=== PATIENT | female | born 1975 | race Caucasian/White ===

== ENCOUNTER 2017-11-27 11:14 | Inpatient (IN) | payer OTHER ==
[2017-11-27] MEDS: SOD CHLORIDE 0.9% 1,000 ML IV ×2 (12:51→22:17)
[2017-11-27] MEDS ORDERED: MAGNESIUM HYDROXIDE 30ML CUP PO (13:00)
[2017-11-27] MEDS ORDERED: NACL 0.9% 3 ML SYG IV (13:00)
[2017-11-27] MEDS ORDERED: morphine 2 MG INJ IV (13:00)
[2017-11-27] MEDS ORDERED: HYDROCODONE/APAP (5/325) TAB PO (13:00)
[2017-11-27] MEDS ORDERED: DOCUSATE SODIUM 100 MG CAP PO (13:00)
[2017-11-27] MEDS ORDERED: ZOLPIDEM 5 MG TAB PO (13:00)
[2017-11-27] MEDS ORDERED: GLUCOSE GEL 15 GRAM TUBE PO ×2 (14:30)
[2017-11-27] MEDS ORDERED: DEXTROSE 50% 50 ML SYRINGE IV ×2 (14:30)
[2017-11-27] MEDS ORDERED: GLUCOSE GEL 15 GRAM TUBE BUCCAL (14:30)
[2017-11-27] MEDS ORDERED: GLUCAGON 1 MG INJ IM (14:30)
[2017-11-27] MEDS: ACETAMINOPHEN 325 MG TAB PO (16:57)
[2017-11-27] MEDS: INSULIN ASPART [NOVOLOG] 3 ML PEN SC ×2 (17:23→20:49)
[2017-11-27] MEDS: Metronidazole 500 MG in NS 100 ML IVPB (17:54)
[2017-11-27 17:58] LABS: LACTIC ACID 1.4 mmol/L (0.5-2.0)
[2017-11-27] MEDS ORDERED: metroNIDAZOLE (5 MG/ML) IV SYG IV* (18:00)
[2017-11-28] MEDS: ACCU-CHEK XX (02:06)
[2017-11-28] MEDS: Metronidazole 500 MG in NS 100 ML IVPB ×3 (05:37→21:24)
[2017-11-28 08:49] LABS: WHITE BLOOD COUNT 7.1 10^3/ul (4.8-10.8)
[2017-11-28 08:49] LABS: ABNORMAL IP MESSAGE 1; HEMATOCRIT 34.6 % (37.0-47.0); HEMOGLOBIN 11.3 g/dl (12.0-16.0); MEAN CORPUSCULAR HEMOGLOBIN 25.2 pg (29.0-33.0); MEAN CORPUSCULAR HGB CONC 32.7 g/dl (32.0-37.0); MEAN CORPUSCULAR VOLUME 77.2 fl (82.0-101.0); MEAN PLATELET VOLUME 11.3 fl (7.4-10.4); PLATELET COUNT 155 10^3/UL (140-415); RED BLOOD COUNT 4.48 10^6/ul (4.20-5.40); RED CELL DISTRIBUTION WIDTH 12.1 % (11.5-14.5)
[2017-11-28 08:53] LABS: ADD MAN DIFF? YES; POSITIVE DIFF @See below
[2017-11-28 09:08] LABS: ALANINE AMINOTRANSFERASE 31 IU/L (13-69); ALBUMIN 3.4 g/dl (3.3-4.9); ALBUMIN/GLOBULIN RATIO 1.25; ALKALINE PHOSPHATASE 76 IU/L (42-121); ANION GAP 11 (8-16); ASPARTATE AMINO TRANSFERASE 24 IU/L (15-46); BILIRUBIN,INDIRECT 0.2 mg/dl (0-1.1); BILIRUBIN,TOTAL 0.2 mg/dl (0.2-1.3); BLOOD UREA NITROGEN 5 mg/dl (7-20); CALCIUM 8.6 mg/dl (8.4-10.2); CARBON DIOXIDE 24 mmol/L (21-31); CHLORIDE 106 mmol/L (97-110); CHOL/HDL RATIO 3.7 RATIO; CHOLESTEROL 147 mg/dl (100-200); CREATININE 0.47 mg/dl (0.44-1.00); GLUCOSE 212 mg/dl (70-220); HDL CHOLESTEROL 39 mg/dl (34-88); LDL CHOLESTEROL,CALCULATED 76 mg/dl; MAGNESIUM 1.8 mg/dl (1.7-2.5); PHOSPHORUS 3.3 mg/dl (2.5-4.9); POTASSIUM 3.6 mmol/L (3.5-5.1); SODIUM 137 mmol/L (135-144); TOTAL PROTEIN 6.1 g/dl (6.1-8.1); TRIGLYCERIDES 161 mg/dl (0-149)
[2017-11-28 09:23] LABS: FREE THYROXINE INDEX (Calc) 2.37 ug/ml (0.65-3.89); T3 UPTAKE 35.9 % (23.5-40.5); T4 (THYROXINE) 6.6 ug/dl (5.5-11.0)
[2017-11-28] MEDS: SOD CHLORIDE 0.9% 1,000 ML IV ×2 (09:28→21:23)
[2017-11-28] MEDS: INSULIN ASPART [NOVOLOG] 3 ML PEN SC ×4 (09:35→21:29)
[2017-11-28 09:44] LABS: HEMOGLOBIN A1C 8.9 % (0-5.9)
[2017-11-28 09:49] LABS: ANISOCYTOSIS 2+ (0-0); BAND NEUTROPHILS #M 2.1 10^3/ul (0.0-0.6); BAND NEUTROPHILS % (M) 30 % (0-4); GIANT THROMBO% (M) 1 % (0-0); LYMPHOCYTES #M 0.2 10^3/ul (0.8-2.9); LYMPHOCYTES % (M) 4 % (15-51); MICROCYTOSIS 2+ (0-0); MONOCYTE #M 0.4 10^3/ul (0.3-0.9); MONOCYTES % (M) 6 % (0-11); PLATELET ESTIMATE NORMAL; POLYCHROMASIA 3+ (0-0); SEG NEUT #M 4.4 10^3/ul (1.6-7.5); SEGMENTED NEUTROPHILS (M) % 60 % (39-77); SMUDGE%M 1 % (0-0)
[2017-11-28] MEDS: MAGNESIUM SULFATE 2 GM/50 ML 50 ML IVPB (12:17)
[2017-11-28] MEDS: INSULIN GLARGINE [LANtus] 3 ML PEN SC (12:30)
[2017-11-28 12:54] LABS: IRON 31 ug/dl (35-150)
[2017-11-28 13:03] LABS: % IRON SATURATION 8 % SAT (22-52); TOTAL IRON BINDING CAPACITY 403 ug/dl (241-421)
[2017-11-28] MEDS ORDERED: BARIUM SULF 2% 450 ML BTL (BERRY SMOOTHIE) PO (17:00)
[2017-11-28] MEDS ORDERED: SOD FERRIC GLUC COMPLX 125 MG in SOD CHLORIDE 0.9% 100 ML IVPB (17:00)
[2017-11-28 17:42] LABS: C-REACTIVE PROTEIN 15.3 mg/dl (0.0-0.9)
[2017-11-28 18:31] LABS: ERYTHROCYTE SEDIMENTATION RATE 20 mm/Hr (0-20)
[2017-11-28] MEDS: ONDANSETRON 4 MG INJ IV (21:35)
[2017-11-28] MEDS: SOD FERRIC GLUC COMPLX 125 MG in SOD CHLORIDE 0.9% 100 ML IVPB (21:37)
[2017-11-29] MEDS: ACCU-CHEK XX (01:26)
[2017-11-29] MEDS: SOD CHLORIDE 0.9% 1,000 ML IV (04:35)
[2017-11-29] MEDS: Metronidazole 500 MG in NS 100 ML IVPB ×3 (05:35→21:26)
[2017-11-29 07:27] LABS: WHITE BLOOD COUNT 4.6 10^3/ul (4.8-10.8)
[2017-11-29 07:27] LABS: HEMATOCRIT 32.6 % (37.0-47.0); HEMOGLOBIN 10.6 g/dl (12.0-16.0); MEAN CORPUSCULAR HGB CONC 32.5 g/dl (32.0-37.0); MEAN CORPUSCULAR VOLUME 76.9 fl (82.0-101.0); MEAN PLATELET VOLUME 11.1 fl (7.4-10.4); PLATELET COUNT 145 10^3/UL (140-415); RED BLOOD COUNT 4.24 10^6/ul (4.20-5.40); RED CELL DISTRIBUTION WIDTH 12.4 % (11.5-14.5)
[2017-11-29 07:33] LABS: ADD MAN DIFF? YES; POSITIVE DIFF @See below
[2017-11-29 07:56] LABS: ANION GAP 14 (8-16); BLOOD UREA NITROGEN 5 mg/dl (7-20); CARBON DIOXIDE 23 mmol/L (21-31); CHLORIDE 106 mmol/L (97-110); CREATININE 0.53 mg/dl (0.44-1.00); GLUCOSE 193 mg/dl (70-220); MAGNESIUM 2.1 mg/dl (1.7-2.5); POTASSIUM 3.4 mmol/L (3.5-5.1); SODIUM 140 mmol/L (135-144)
[2017-11-29] MEDS: INSULIN ASPART [NOVOLOG] 3 ML PEN SC ×5 (08:51→21:00)
[2017-11-29] MEDS: INSULIN GLARGINE [LANtus] 3 ML PEN SC (08:52)
[2017-11-29 09:10] LABS: ANISOCYTOSIS 3+ (0-0); BAND NEUTROPHILS #M 1.8 10^3/ul (0.0-0.6); BAND NEUTROPHILS % (M) 41 % (0-4); GIANT THROMBO% (M) 1 % (0-0); LYMPHOCYTES #M 0.3 10^3/ul (0.8-2.9); LYMPHOCYTES % (M) 8 % (15-51); METAMYELOCYTES %M 2 % (0-0); MICROCYTOSIS 3+ (0-0); MONOCYTE #M 0.5 10^3/ul (0.3-0.9); MONOCYTES % (M) 11 % (0-11); PLATELET ESTIMATE NORMAL; POIKILOCYTOSIS 1+ (0-0); POLYCHROMASIA 3+ (0-0); SEG NEUT #M 1.8 10^3/ul (1.6-7.5); SEGMENTED NEUTROPHILS (M) % 38 % (39-77); SMUDGE%M 3 % (0-0)
[2017-11-29] MEDS ORDERED: IOHEXOL 300MG/ML 150 ML BTL (11:07)
[2017-11-29] MEDS: SOD CHLORIDE 0.9% 100 ML (11:31)
[2017-11-29] MEDS: IODIXANOL LOCM 100 ML BTL (11:31)
[2017-11-29] MEDS: POTASSIUM CHLORIDE (SR) 20 MEQ TAB PO (14:47)
[2017-11-29] MEDS: NS + KCL 20 MEQ 1,000 ML IV ×2 (14:47→23:00)
[2017-11-29] MEDS: SOD FERRIC GLUC COMPLX 125 MG in SOD CHLORIDE 0.9% 100 ML IVPB (21:26)
[2017-11-30] MEDS: ACCU-CHEK XX (02:00)
[2017-11-30] MEDS: Metronidazole 500 MG in NS 100 ML IVPB (07:01)
[2017-11-30 07:42] LABS: ADD MAN DIFF? NO
[2017-11-30 07:48] LABS: WHITE BLOOD COUNT 3.3 10^3/ul (4.8-10.8)
[2017-11-30 07:48] LABS: BASOPHILS % 0.3 % (0.0-2.0); EOSINOPHILS % 1.2 % (0.0-7.0); HEMATOCRIT 31.3 % (37.0-47.0); HEMOGLOBIN 10.2 g/dl (12.0-16.0); LYMPHOCYTES # 0.8 10^3/ul (0.8-2.9); LYMPHOCYTES % 23.4 % (15.0-51.0); MEAN CORPUSCULAR HEMOGLOBIN 25.2 pg (29.0-33.0); MEAN CORPUSCULAR HGB CONC 32.6 g/dl (32.0-37.0); MEAN CORPUSCULAR VOLUME 77.3 fl (82.0-101.0); MEAN PLATELET VOLUME 11.6 fl (7.4-10.4); MONOCYTE # 0.6 10^3/ul (0.3-0.9); MONOCYTES % 17.1 % (0.0-11.0); NEUTROPHIL # 1.9 10^3/ul (1.6-7.5); NEUTROPHILS % 57.4 % (39.0-77.0); PLATELET COUNT 154 10^3/UL (140-415); RED BLOOD COUNT 4.05 10^6/ul (4.20-5.40); RED CELL DISTRIBUTION WIDTH 12.3 % (11.5-14.5)
[2017-11-30 08:15] LABS: ANION GAP 11 (8-16); BLOOD UREA NITROGEN 5 mg/dl (7-20); CALCIUM 8.2 mg/dl (8.4-10.2); CARBON DIOXIDE 26 mmol/L (21-31); CHLORIDE 109 mmol/L (97-110); CREATININE 0.49 mg/dl (0.44-1.00); GLUCOSE 152 mg/dl (70-220); MAGNESIUM 1.8 mg/dl (1.7-2.5); PHOSPHORUS 3.3 mg/dl (2.5-4.9); POTASSIUM 3.4 mmol/L (3.5-5.1); SODIUM 143 mmol/L (135-144)
[2017-11-30 08:37] LABS: C-REACTIVE PROTEIN 4.1 mg/dl (0.0-0.9)
[2017-11-30 08:45] LABS: ERYTHROCYTE SEDIMENTATION RATE 23 mm/Hr (0-20)
[2017-11-30] MEDS: NS + KCL 20 MEQ 1,000 ML IV (09:00)
[2017-11-30] MEDS: INSULIN ASPART [NOVOLOG] 3 ML PEN SC ×2 (09:06)
[2017-11-30] MEDS: INSULIN GLARGINE [LANtus] 3 ML PEN SC (09:07)
[2017-11-30] MEDS: POTASSIUM CHLORIDE (SR) 20 MEQ TAB PO (10:29)
[2017-11-30] MEDS: ACETAMINOPHEN 325 MG TAB PO (10:29)
== END 2017-11-30 11:21 | disposition home or self-care (01) | DRG 872 ==
LOC: MS3 11:14 → MS4 20:28
PROVIDERS: Hospitalist
DX: A41.9 Sepsis, unspecified organism (principal); K51.00 Ulcerative (chronic) pancolitis without complications; A08.4 Viral intestinal infection, unspecified; E78.5 Hyperlipidemia, unspecified; E11.9 Type 2 diabetes mellitus without complications; D64.9 Anemia, unspecified; R19.7 Diarrhea, unspecified
CPT/HCPCS: 74177; 80048; 80053; 80061; 82962; 83036; 83540; 83605; 83735; 84100; 84436; 84479; 84703; 85025; 85651; 86140; 87040; 87045; 87075